=== PATIENT | male | born 1990 | race Caucasian/White ===

== ENCOUNTER 2017-08-23 06:59 | Emergency (ER) | payer BC ==
[2017-08-23] MEDS ORDERED: Albuterol/Ipratropium 3.0-0.5 MG/3 ML Neb Soln NEB ONE (07:06)
[2017-08-23] MEDS ORDERED: Sodium Chloride 0.9% 1,000 ML IV ONE (07:20)
--- NOTE | 2017-08-23 07:21 | EDM.PDOC ---
ED HPI GENERAL MEDICAL PROBLEM - General Chief Complaint: Respiratory Problem Stated Complaint: COUGHING ALOT, CHEST PAINS Time Seen by Provider: 08/23/17 07:20 Source of Information: Reports: Patient - History of Present Illness INITIAL COMMENTS - FREE TEXT/NARRATIVE: HISTORY AND PHYSICAL: History of present illness: [Patient presents with fever and cough increasing over last 3-4 days some sinus tenderness no nausea vomiting or sweats no current chest pain shortness breath headache dizziness or palpitation no bowel or urine symptoms ] Review of systems: As per history of present illness and below otherwise all systems reviewed and negative. Past medical history: As per history of present illness and as reviewed below otherwise noncontributory. Surgical history: As per history of present illness and as reviewed below otherwise noncontributory. Social history: No reported history of drug or alcohol abuse. Family history: As per history of present illness and as reviewed below otherwise noncontributory. Physical exam: HEENT: Atraumatic, normocephalic, pupils reactive, negative for conjunctival pallor or scleral icterus, mucous membranes moist, throat clear, neck supple, nontender, trachea midline.Sinus tenderness left greater than right no meningeal signs Lungs: Clear to auscultation, breath sounds equal bilaterally, chest nontender. Heart: S1S2, regular, negative for clicks, rubs, or JVD. Abdomen: Soft, nondistended, nontender. Negative for masses or hepatosplenomegaly. Negative for costovertebral tenderness. Pelvis: Stable nontender. Genitourinary: Deferred. Rectal: Deferred. Extremities: Atraumatic, negative for cords or calf pain. Neurovascular unremarkable. Neuro: Awake, alert, oriented. Cranial nerves II through XII unremarkable. Cerebellum unremarkable. Motor and sensory unremarkable throughout. Exam nonfocal. Diagnostics: [CBC CMP UA blood cultures influenza Radha st 2 views s Therapeutics: [Normal saline 1 L bolus DuoNeb ]Levaquin 500 mg by mouth now and daily #10 no refill HFA Impression: [ fever Sinusitis productiveCough ]/bronchitis Slight infiltrate on chest x-ray Definitive disposition and diagnosis as appropriate pending reevaluation and review of above. Chest Pain Score (Numeric/FACES): 10 - Related Data Allergies Allergy/AdvReac Type Severity Reaction Status Date / Time pollen extracts Allergy Respiratory Verified 08/23/17 07:14 Distress Home Meds: Home Meds . [No Known Home Meds] 08/23/17 [History] Past Medical History - Past Surgical History HEENT Surgical History: Reports: Tonsillectomy Musculoskeletal Surgical History: Reports: Shoulder Surgery Social & Family History - Family History Family Medical History: Noncontributory - Tobacco Use Years of Tobacco use: 7 Packs/Tins Daily: 1 - Caffeine Use Caffeine Use: Reports: Energy Drinks - Recreational Drug Use Recreational Drug Use: No ED ROS GENERAL - Review of Systems Review Of Systems: ROS reveals no pertinent complaints other than HPI. ED EXAM, GENERAL - Physical Exam Exam: See Below Course - Vital Signs Last Recorded V/S: Last Vital Signs Temp 101.7 F H 08/23/17 08:55 Pulse 98 08/23/17 08:55 Resp 18 08/23/17 08:55 BP 129/62 08/23/17 07:11 Pulse Ox 97 08/23/17 08:55 - Orders/Labs/Meds Orders: Active Orders 24 hr Category Date Time Status RT Aerosol Therapy [RC] ASDIRECTED Care 08/23/17 07:06 Active Chest 2V [CR] Stat Exams 08/23/17 07:06 Taken CULTURE BLOOD [BC] Stat Lab 08/23/17 07:41 Received CULTURE BLOOD [BC] Stat Lab 08/23/17 07:51 Received INFLUENZA A+B AG SCREEN [RM] Stat Lab 08/23/17 07:15 Ordered UA W/MICROSCOPIC [URIN] Stat Lab 08/23/17 08:50 Ordered Blood Culture x2 Reflex Set [OM.PC] Stat Oth 08/23/17 07:20 Ordered Labs: Laboratory Tests 08/23/17 08/23/17 08/23/17 Range/Units 07:41 07:41 08:50 WBC 9.42 (4.0-11.0) K/uL RBC 5.07 (4.50-5.90) M/uL Hgb 15.2 (13.0-17.0) g/dL Hct 44.5 (38.0-50.0) % MCV 87.8 (80.0-98.0) fL MCH 30.0 (27.0-32.0) pg MCHC 34.2 (31.0-37.0) g/dL RDW Std Deviation 41.6 (28.0-62.0) fl RDW Coeff of Adam 13 (11.0-15.0) % Plt Count 151 (150-400) K/uL MPV 9.60 (7.40-12.00) fL Neut % (Auto) 77.8 (48.0-80.0) % Lymph % (Auto) 12.8 L (16.0-40.0) % [place] % (Auto) 8.4 (0.0-15.0) % Eos % (Auto) 0.8 (0.0-7.0) % Baso % (Auto) 0.2 (0.0-1.5) % Neut # (Auto) 7.3 H (1.4-5.7) K/uL Lymph # (Auto) 1.2 (0.6-2.4) K/uL [place] # (Auto) 0.8 (0.0-0.8) K/uL Eos # (Auto) 0.1 (0.0-0.7) K/uL Baso # (Auto) 0.0 (0.0-0.1) K/uL Nucleated RBC % 0.0 /100WBC Nucleated RBCs # 0 K/uL Sodium 141 (136-148) mmol/L Potassium 3.9 (3.5-5.1) mmol/L Chloride 105 (98-107) mmol/L Carbon Dioxide 26.5 (21.0-32.0) mmol/L BUN 18 (7.0-18.0) mg/dL Creatinine 1.1 (0.8-1.3) mg/dL Est Cr Clr Drug Dosing 109.39 mL/min Estimated GFR (MDRD) > 60.0 ml/min Glucose 106 (74-106) mg/dL Calcium 8.9 (8.5-10.1) mg/dL Total Bilirubin 0.3 (0.2-1.0) mg/dL AST 20 (15-37) IU/L ALT 24 (14-63) IU/L Alkaline Phosphatase 83 (46-116) U/L Total Protein 7.2 (6.4-8.2) g/dL Albumin 4.1 (3.4-5.0) g/dL Globulin 3.1 (2.0-3.5) g/dL Albumin/Globulin Ratio 1.3 (1.3-2.8) Urine Color YELLOW Urine Appearance CLEAR Urine pH 5.5 (5.0-8.0) Ur Specific [place] 1.020 (1.001-1.035) Urine Protein NEGATIVE (NEGATIVE) mg/dL Urine Glucose (UA) NEGATIVE (NEGATIVE) mg/dL Urine Ketones NEGATIVE (NEGATIVE) mg/dL Urine Occult Blood NEGATIVE (NEGATIVE) Urine Nitrite NEGATIVE (NEGATIVE) Urine Bilirubin NEGATIVE (NEGATIVE) Urine Urobilinogen 0.2 (<2.0) EU/dL Ur Leukocyte Esterase NEGATIVE (NEGATIVE) Urine RBC 0-1 (0-2/HPF) Urine WBC 0-1 (0-5/HPF) Ur Epithelial Cells RARE (NONE-FEW) Urine Bacteria RARE (NEGATIVE) Meds: Medications Discontinued Medications Generic Name Dose Route Start Last Admin Trade Name Benq PRN Reason Stop Dose Admin Acetaminophen 1,000 mg 08/23/17 08:12 08/23/17 08:19 Tylenol Extra Strength PO 08/23/17 08:13 1,000 mg ONETIME ONE Administration Albuterol/Ipratropium 3 ml 08/23/17 07:06 08/23/17 07:18 Duoneb 3.0-0.5 Mg/3 Ml NEB 08/23/17 07:07 3 ml ONETIME ONE Administration Sodium Chloride 1,000 mls @ 999 mls/hr 08/23/17 07:20 08/23/17 07:45 Normal Saline IV 08/23/17 08:20 999 mls/hr STAT ONE Administration Levofloxacin 500 mg 08/23/17 07:57 08/23/17 08:10 Levaquin PO 08/23/17 07:58 500 mg ONETIME ONE Administration Ondansetron HCl 8 mg 08/23/17 07:43 08/23/17 07:48 Zofran IVPUSH 08/23/17 07:44 8 mg ONETIME ONE Administration Departure - Departure Time of Disposition: 09:11 Disposition: Home, Self-Care 01 Condition: Good Clinical Impression: Sinusitis, Bronchitis - Discharge Information Referrals: PCP,None [Primary Care Provider] - Forms: ED Department Discharge Additional Instructions: Medication as prescribed Return if symptoms persist or worsen Rest fluids nutrition Follow-up with primary care in 2 weeks sooner as needed [facility] - Primary Care [address] [place] [id number] The following information is given to patients seen in the emergency department who are being discharged to home. This information is to outline your options for follow-up care. We provide all patients seen in our emergency department with a follow-up referral. The need for follow-up, as well as the timing and circumstances, are variable depending upon the specifics of your emergency department visit. If you don't have a primary care physician on staff, we will provide you with a referral. We always advise you to contact your personal physician following an emergency department visit to inform them of the circumstance of the visit and for follow-up with them and/or the need for any referrals to a consulting specialist. The emergency department will also refer you to a specialist when appropriate. This referral assures that you have the opportunity for follow-up care with a specialist. All of these measure are taken in an effort to provide you with optimal care, which includes your follow-up. Under all circumstances we always encourage you to contact your private physician who remains a resource for coordinating your care. When calling for follow-up care, please make the office aware that this follow-up is from your recent emergency room visit. If for any reason you are refused follow-up, please contact the [facility] emergency department at and asked to speak to the emergency department charge nurse. - My Orders Last 24 Hours: My Active Orders 08/23/17 07:06 RT Aerosol Therapy [RC] ASDIRECTED Chest 2V [CR] Stat 08/23/17 07:15 INFLUENZA A+B AG SCREEN [RM] Stat 08/23/17 07:20 Blood Culture x2 Reflex Set [OM.PC] Stat 08/23/17 07:41 CULTURE BLOOD [BC] Stat 08/23/17 07:51 CULTURE BLOOD [BC] Stat 08/23/17 08:50 UA W/MICROSCOPIC [URIN] Stat - Assessment/Plan Last 24 Hours: My Active Orders 08/23/17 07:06 RT Aerosol Therapy [RC] ASDIRECTED Chest 2V [CR] Stat 08/23/17 07:15 INFLUENZA A+B AG SCREEN [RM] Stat 08/23/17 07:20 Blood Culture x2 Reflex Set [OM.PC] Stat 08/23/17 07:41 CULTURE BLOOD [BC] Stat 08/23/17 07:51 CULTURE BLOOD [BC] Stat 08/23/17 08:50 UA W/MICROSCOPIC [URIN] Stat
[2017-08-23] MEDS ORDERED: Ondansetron 4 MG/2 ML SDV IVPUSH ONE (07:43)
[2017-08-23] MEDS ORDERED: Levofloxacin 500 MG Tab PO ONE (07:57)
[2017-08-23] MEDS ORDERED: Acetaminophen 500 MG Tab PO ONE (08:12)
[2017-08-23 08:25] LABS: CHLORIDE,CL 105 mmol/L (98-107); SODIUM,NA 141 mmol/L (136-148)
--- NOTE | 2017-08-25 09:49 | CR ---
EXAM DATE: 08/23/17 PATIENT'S AGE: 27 Patient: RHIANNON MOYA Facility: [place], [place] Site . Site : 1990 Study: XRay Chest [id number]/14/2018 7:35:33 AM Ordering Physician: Doctor Padilla Final Report: HISTORY: Chest pain, shortness of breath, cough and fever. TECHNIQUE: Two views of the chest. COMPARISON: No prior. FINDINGS: Cardiac size and pulmonary vasculature are within normal limits. There is no acute lung infiltrate or pulmonary edema. No pneumothorax or pleural effusion. No acute bony abnormality. IMPRESSION: No acute disease. Dictated by Jefferson Saleh MD @ 08/23/2017 7:41:15 AM Dictated by: Jefferson Saleh MD @ 08/23/2017 07:41:21 (Electronic Signature) Report Signed by Proxy. [facility] CENTERZhanna
== END 2017-08-23 09:24 | disposition home or self-care (01) ==
LOC: MW.ED 06:59
DX: J40 Bronchitis, not specified as acute or chronic (principal); J32.9 Chronic sinusitis, unspecified; R91.8 Other nonspecific abnormal finding of lung field; F17.210 Nicotine dependence, cigarettes, uncomplicated; Z91.09 Other allergy status, other than to drugs and biological substances
CPT/HCPCS: 36415; 71046; 80053; 81001; 85025; 87040; 87804; 94640; 96361; 96374; 99284; A9270; J2405; J7040; 99283

== ENCOUNTER 2018-08-28 20:56 | Emergency (ER) | payer BC, OTHER ==
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
== END 2018-08-28 22:15 | disposition home or self-care (01) ==
LOC: MW.ED 20:56
DX: S09.90XA Unspecified injury of head, initial encounter (principal); S59.912A Unspecified injury of left forearm, initial encounter; J01.10 Acute frontal sinusitis, unspecified; Z91.09 Other allergy status, other than to drugs and biological substances; V86.96XA Unspecified occupant of dirt bike or motor/cross bike injured in nontraffic accident, initial encounter
CPT/HCPCS: 70450; 70450-26; 73090-26-LT; 73090-LT; 99284; 99284-25

== ENCOUNTER 2022-08-17 20:05 | Emergency (ER) | payer OTHER, BC ==
[~2022-08-17 20:05] MED LIST: fentaNYL 100 MCG/2 ML SDV ONE
[2022-08-17] MEDS ORDERED: HYDROmorphone 1 MG/ML Syringe IVPUSH ONE (20:38)
[2022-08-17] MEDS ORDERED: Lidocaine 5% 700 MG Patch TOP STA (21:22)
[2022-08-17] MEDS ORDERED: Acetaminophen 325 MG Tab PO ONE (21:22)
[2022-08-17] MEDS ORDERED: Ibuprofen 400 MG Tab PO ONE (21:22)
[2022-08-17 21:48] LABS: CARBON DIOXIDE,CO2 23.4 mmol/L (21.0-32.0); POTASSIUM,K 3.9 mmol/L (3.5-5.1)
[2022-08-17] MEDS ORDERED: fentaNYL 100 MCG/2 ML SDV IVPUSH STA (22:42)
== END 2022-08-17 22:06 | disposition home or self-care (01) ==
LOC: MW.ED 20:05
DX: S52.571A Other intraarticular fracture of lower end of right radius, initial encounter for closed fracture (principal); Z91.048 Other nonmedicinal substance allergy status; V29.99XA Rider (driver) (passenger) of other motorcycle injured in unspecified traffic accident, initial encounter
CPT/HCPCS: 29125; 36415; 70450; 71045; 71260; 72125; 72170; 73100; 74177; 80053; 83690; 85025; 85610; 85730; 86900; 86901; 96374; 96375; 99284; A9270; J1170; J3010

== ENCOUNTER 2022-08-20 00:39 | Emergency (ER) | payer OTHER, BC ==
[2022-08-20] MEDS ORDERED: oxyCODONE 5 MG Tab PO ONE ×2 (02:37→05:11)
[2022-08-20] MEDS ORDERED: Lidocaine 5% 700 MG Patch TRDERM ONE (02:37)
[2022-08-20] MEDS ORDERED: Ibuprofen 400 MG Tab PO ONE (02:37)
[2022-08-20] MEDS ORDERED: Acetaminophen 325 MG Tab PO ONE (02:37)
== END 2022-08-20 05:29 | disposition home or self-care (01) ==
LOC: MW.ED 00:39
DX: S22.038A Other fracture of third thoracic vertebra, initial encounter for closed fracture (principal); S22.048A Other fracture of fourth thoracic vertebra, initial encounter for closed fracture; S22.058A Other fracture of T5-T6 vertebra, initial encounter for closed fracture; Z91.09 Other allergy status, other than to drugs and biological substances; V29.99XA Rider (driver) (passenger) of other motorcycle injured in unspecified traffic accident, initial encounter
CPT/HCPCS: 72128; 72128-26; 99283; A9270-GY

== ENCOUNTER 2024-03-18 14:02 | Emergency (ER) | payer OTHER, BC ==
[2024-03-18] MEDS ORDERED: Sodium Chloride 0.9% 10 ML Syringe FLUSH PRN (14:36)
[2024-03-18] MEDS ORDERED: Sodium Chloride 0.9% 2.5 ML Syringe FLUSH PRN (14:36)
[2024-03-18 15:27] LABS: BASOPHILS ABSOLUTE AUTO 0.03 K/uL (0.00-0.20); BASOPHILS PERCENT AUTO 0.3 % (0.0-1.0); EOSINOPHILS ABSOLUTE AUTO 0.07 K/uL (0.00-0.45); EOSINOPHILS PERCENT AUTO 0.8 % (0.0-6.0); HEMATOCRIT 43.9 % (42.0-52.0); HEMOGLOBIN 15.1 g/dL (14.0-18.0); IMMATURE GRAN ABSOLUTE AUTO 0.02 K/uL (0.00-0.05); IMMATURE GRAN PERCENT AUTO 0.2 % (0.0-0.4); LYMPHOCYTES ABSOLUTE AUTO 2.22 K/uL (1.00-4.80); LYMPHOCYTES PERCENT AUTO 25.8 % (24.0-44.0); MEAN CORPUSCULAR HEMOGLOBIN 30.3 pg (28.0-32.0); MEAN CORPUSCULAR HGB CONC 34.4 g/dL (32.0-36.0); MEAN CORPUSCULAR VOLUME 88.2 fL (83.0-99.0); MEAN PLATELET VOLUME 9.1 fL (9.4-12.4); MONOCYTES ABSOLUTE AUTO 0.51 K/uL (0.00-0.80); MONOCYTES PERCENT AUTO 5.9 % (0.0-8.0); NEUTROPHILS ABSOLUTE AUTO 5.77 K/uL (1.80-7.70); PLATELET COUNT,PLT 221 K/uL (150-400); RED BLOOD CELL COUNT 4.98 M/uL (4.52-5.90); WHITE BLOOD CELL COUNT,WBC 8.62 K/uL (3.9-11.3)
[2024-03-18 15:55] LABS: A/G RATIO 1.3 (0.9-1.6); BILIRUBIN TOTAL 0.5 mg/dL (0.2-1.0); CALCIUM 9.2 mg/dL (8.5-10.1); CARBON DIOXIDE,CO2 28.3 mmol/L (21.0-32.0); EST CRCL DRUG DOSING (CG) 110.9 mL/min; POTASSIUM,K 4.3 mmol/L (3.5-5.1)
[2024-03-18] MEDS: Iopamidol 755 MG/ML 500 ML Multipack Bottle IVPUSH STA (18:09)
== END 2024-03-18 18:41 | disposition home or self-care (01) ==
LOC: MW.ED 14:02
DX: S22.31XA Fracture of one rib, right side, initial encounter for closed fracture (principal); Z91.048 Other nonmedicinal substance allergy status; Z75.8 Other problems related to medical facilities and other health care; V89.2XXA Person injured in unspecified motor-vehicle accident, traffic, initial encounter
CPT/HCPCS: 36415; 71260; 80053; 85025; 99284; Q9967

== ENCOUNTER 2024-04-07 12:31 | Emergency (ER) | payer BC ==
[2024-04-07] MEDS: Ketorolac 30 MG/ML SDV IVPUSH ONE (13:03)
[2024-04-07 13:04] LABS: BASOPHILS ABSOLUTE AUTO 0.03 K/uL (0.00-0.20); BASOPHILS PERCENT AUTO 0.4 % (0.0-1.0); EOSINOPHILS ABSOLUTE AUTO 0.09 K/uL (0.00-0.45); EOSINOPHILS PERCENT AUTO 1.2 % (0.0-6.0); HEMATOCRIT 42.8 % (42.0-52.0); HEMOGLOBIN 15.1 g/dL (14.0-18.0); IMMATURE GRAN ABSOLUTE AUTO 0.02 K/uL (0.00-0.05); IMMATURE GRAN PERCENT AUTO 0.3 % (0.0-0.4); LYMPHOCYTES ABSOLUTE AUTO 2.32 K/uL (1.00-4.80); LYMPHOCYTES PERCENT AUTO 30.2 % (24.0-44.0); MEAN CORPUSCULAR HEMOGLOBIN 30.6 pg (28.0-32.0); MEAN CORPUSCULAR HGB CONC 35.3 g/dL (32.0-36.0); MEAN CORPUSCULAR VOLUME 86.6 fL (83.0-99.0); MONOCYTES PERCENT AUTO 6.5 % (0.0-8.0); NEUTROPHILS ABSOLUTE AUTO 4.71 K/uL (1.80-7.70); NEUTROPHILS PERCENT AUTO 61.4 % (41.0-71.0); PLATELET COUNT,PLT 207 K/uL (150-400); RED BLOOD CELL COUNT 4.94 M/uL (4.52-5.90); WHITE BLOOD CELL COUNT,WBC 7.67 K/uL (3.9-11.3)
[2024-04-07] MEDS: Aspirin 81 MG Tab.Chew PO ONE (13:04)
[2024-04-07] MEDS: Lidocaine 4% 1 each Patch TOP STA (13:41)
[2024-04-07 13:59] LABS: A/G RATIO 1.4 (0.9-1.6); BILIRUBIN TOTAL 0.9 mg/dL (0.2-1.0); CALCIUM 9.3 mg/dL (8.5-10.1); CARBON DIOXIDE,CO2 31.1 mmol/L (21.0-32.0); EST CRCL DRUG DOSING (CG) 116.35 mL/min; MAGNESIUM 1.6 mg/dL (1.8-2.4); POTASSIUM,K 4.4 mmol/L (3.5-5.1); PROTEIN TOTAL,TP 6.9 g/dL (6.4-8.2); TSH ULTRASENSITIVE 1.29 uIU/mL (0.36-3.74)
== END 2024-04-07 14:59 | disposition home or self-care (01) ==
LOC: MW.ED 12:31
DX: R07.89 Other chest pain (principal); Z79.899 Other long term (current) drug therapy; Z91.018 Allergy to other foods
CPT/HCPCS: 36415; 71046; 80053; 83690; 83735; 84443; 84484; 85025; 93005; 96374; 99285; A9270; J1885

== ENCOUNTER 2024-07-27 08:08 | Emergency (ER) | payer BC ==
[2024-07-27] MEDS: Ketorolac 30 MG/ML SDV IM ONE (08:27)
[2024-07-27] MEDS: Acetaminophen 500 MG Tab PO ONE (08:27)
== END 2024-07-27 09:18 | disposition home or self-care (01) ==
LOC: MW.ED 08:08
DX: S76.111A Strain of right quadriceps muscle, fascia and tendon, initial encounter (principal); Z91.048 Other nonmedicinal substance allergy status; X50.9XXA Other and unspecified overexertion or strenuous movements or postures, initial encounter; Y93.44 Activity, trampolining
CPT/HCPCS: 73552; 99283; A9270

== ENCOUNTER 2024-08-14 18:07 | Emergency (ER) | payer BC ==
[2024-08-14] MEDS: Lidocaine 2% Viscous Solution 15 ML UD PO ONE (18:57)
[2024-08-14] MEDS: Benzocaine 20% Topical Spray UD MUCMEM ONE (18:57)
[2024-08-14] MEDS: traMADol 50 MG Tab PO STA (18:57)
== END 2024-08-14 19:01 | disposition home or self-care (01) ==
LOC: MW.ED 18:07
DX: K04.7 Periapical abscess without sinus (principal); F17.210 Nicotine dependence, cigarettes, uncomplicated; Z75.8 Other problems related to medical facilities and other health care; Z91.018 Allergy to other foods; Z79.899 Other long term (current) drug therapy
CPT/HCPCS: 99282; A9270; 99283